=== PATIENT | female | born 1950 | race Caucasian/White ===

== ENCOUNTER 2021-04-13 21:04 | Emergency (ER) | payer MEDICARE ==
[2021-04-13 21:26] VITALS: RESP 16; TEMP 97.6
[2021-04-13] MEDS ORDERED: MORPHINE SULFATE 2 MG/ML SYRINGE IV STA (21:26)
--- NOTE | 2021-04-13 21:30 | ED ---
Fall HPI - General Chief Complaint: Fall Stated Complaint: Fall, left arm injury Time Seen by Provider: 04/13/21 21:07 Source: patient, EMS Mode of arrival: EMS - History of Present Illness Initial Comments: 's patient is 70-year-old woman brought by ambulance to be evaluated after she had a fall at home. The patient states that she was cleaning a fish tank, she tripped over an electrical cord and fell forward striking her left shoulder on the ground. She complains of pain to both anterior and posterior aspects of left shoulder. Patient denies weakness at the left hand. 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 She states that it also seems to be causing her angina flareup. She states she is having her typical angina pain. The patient states she cannot take nitroglycerin for this because it causes her blood pressure didn't go very very low. She states she "" after taking it. Complaint: fall -: minutes(s) Fall From: standing When Fall Occurred: just prior to arrival Place Fall Occurred: home Loss of Consciousness: none Prolonged Down Time?: no Symptoms Prior to Fall: none Location - Extremities: Left: Shoulder Severity: severe Context: tripped/slipped - Related Data Home Medications Medication Instructions Recorded Confirmed No Known Home Medications 04/13/21 04/13/21 Allergies Allergy/AdvReac Type Severity Reaction Status Date / Time Iodine and Iodide Containing AdvReac Confusion Verified 04/13/21 22:17 Produc Review of Systems ROS Statement: Those systems with pertinent positive or pertinent negative responses have been documented in the HPI. ROS Other: All systems not noted in ROS Statement are negative. Constitutional: Denies: fever, weakness Respiratory: Denies: cough, dyspnea Cardiovascular: Reports: as per HPI, chest pain. Denies: palpitations, orthopnea, syncope Gastrointestinal: Denies: abdominal pain, nausea, vomiting Musculoskeletal: Reports: arthralgia. Denies: back pain Skin: Denies: rash Neurological: Denies: headache, weakness, numbness Past Medical History Past Medical History: CVA/TIA, Myocardial Infarction ([place]), Thyroid Disorder History of Any Multi-Drug Resistant Organisms: None Reported Past Surgical History: Section Additional Past Surgical History / Comment(s): "surgery for cancer." Past Psychological History: Anxiety, Depression Smoking Status: Never smoker Past Alcohol Use History: None Reported Past Drug Use History: None Reported General Exam Limitations: no limitations General appearance: alert, in no apparent distress Head exam: Present: atraumatic, normocephalic Eye exam: Present: normal appearance. Absent: scleral icterus, conjunctival injection Neck exam: Present: normal inspection, full ROM. Absent: tenderness Respiratory exam: Present: normal lung sounds bilaterally. Absent: respiratory distress, wheezes, rales, rhonchi, stridor, chest wall tenderness Cardiovascular Exam: Present: regular rate, normal rhythm, normal heart sounds. Absent: systolic murmur, diastolic murmur, rubs, gallop GI/Abdominal exam: Present: soft. Absent: distended, tenderness, guarding, rebound, rigid, mass Back exam: Absent: vertebral tenderness Neurological exam: Present: alert. Absent: motor sensory deficit Skin exam: Present: warm, dry, intact, normal color. Absent: rash Course Vital Signs 04/13/21 04/13/21 04/13/21 21:18 22:13 22:59 Temperature 97.6 F Pulse Rate 84 75 83 Respiratory 16 16 16 Rate Blood Pressure 136/85 O2 Sat by Pulse 94 L 96 95 Oximetry 04/14/21 00:38 Temperature Pulse Rate 78 Respiratory 16 Rate Blood Pressure 132/62 O2 Sat by Pulse 95 Oximetry Medical Decision Making - Lab Data Result diagrams: 04/13/21 21:44 04/13/21 21:44 Lab Results 04/13/21 04/13/21 04/13/21 Range/Units 21:44 21:44 21:44 WBC 8.3 (3.8-10.6) k/uL RBC 4.72 (3.80-5.40) m/uL Hgb 14.7 (11.4-16.0) gm/dL Hct 44.0 (34.0-46.0) % MCV 93.3 (80.0-100.0) fL MCH 31.2 (25.0-35.0) pg MCHC 33.4 (31.0-37.0) g/dL RDW 13.2 (11.5-15.5) % Plt Count 263 (150-450) k/uL MPV 8.6 Neutrophils % 63 % Lymphocytes % 28 % Monocytes % 5 % Eosinophils % 3 % Basophils % 1 % Neutrophils # 5.2 (1.3-7.7) k/uL Lymphocytes # 2.3 (1.0-4.8) k/uL Monocytes # 0.4 (0-1.0) k/uL Eosinophils # 0.2 (0-0.7) k/uL Basophils # 0.1 (0-0.2) k/uL Sodium 139 (137-145) mmol/L Potassium 4.0 (3.5-5.1) mmol/L Chloride 107 (98-107) mmol/L Carbon Dioxide 25 (22-30) mmol/L Anion Gap 7 mmol/L BUN 23 H (7-17) mg/dL Creatinine 0.86 (0.52-1.04) mg/dL Est GFR (CKD-EPI)AfAm 80 (>60 ml/min/1.73 sqM) Est GFR (CKD-EPI)NonAf 69 (>60 ml/min/1.73 sqM) Glucose 145 H (74-99) mg/dL Calcium 8.8 (8.4-10.2) mg/dL Troponin I <0.012 (0.000-0.034) ng/mL - EKG Data -: EKG Interpreted by Me EKG shows normal: sinus rhythm, intervals (Normal), QRS complexes (There is a possible right ventricular conduction delay, based on RSR' pattern), ST-T waves Rate: normal (Rate 89 bpm) Disposition Clinical Impression: Fall, Humerus fracture Narrative: This is initial visit for closed fracture left proximal humerus. Disposition: HOME SELF-CARE Condition: Stable Instructions (If sedation given, give patient instructions): How to Use a Sling (ED), Fall Prevention for Older Adults (ED), Fall Prevention (ED) Is patient prescribed a controlled substance at d/c from ED?: Yes When asked, does pt state using other controlled substances?: No If prescribed controlled substance>3 days was MAPS reviewed?: Prescribed <3 Days If opioid is for acute pain is fill amount 7 days or less?: Yes If Rx opioid, was Start Talking consent form obtained?: Yes Referrals: Tiago Davies MD [Primary Care Provider] - 1-2 days
[2021-04-13 21:56] LABS: Basophils # (A) 0.1 k/uL (0-0.2); Basophils % (A) 1 %; Eosinophils # (A) 0.2 k/uL (0-0.7); Eosinophils % (A) 3 %; HGB 14.7 gm/dL (11.4-16.0); Lymphocytes # (A) 2.3 k/uL (1.0-4.8); Lymphocytes % (A) 28 %; MCH 31.2 pg (25.0-35.0); MCHC 33.4 g/dL (31.0-37.0); MCV 93.3 fL (80.0-100.0); Mean Platelet Volume 8.6; Monocytes # (A) 0.4 k/uL (0-1.0); Monocytes % (A) 5 %; Neutrophils # (A) 5.2 k/uL (1.3-7.7); Neutrophils % (A) 63 %; Platelet Count 263 k/uL (150-450); RBC 4.72 m/uL (3.80-5.40); RDW 13.2 % (11.5-15.5); WBC 8.3 k/uL (3.8-10.6)
[2021-04-13 22:06] LABS: Calcium 8.8 mg/dL (8.4-10.2)
--- NOTE | 2021-04-13 22:36 | XR ---
EXAMINATION TYPE: XR shoulder complete LT DATE OF EXAM: 04/13/2021 COMPARISON: NONE HISTORY: Shoulder pain TECHNIQUE: 2 views FINDINGS: There is fracture of the proximal shaft of the humerus. There is mild medial angulation at the fracture site. There is no dislocation at the shoulder joint. The AC joint is intact. IMPRESSION: Acute fracture of the proximal shaft of the humerus with mild angulation.
[2021-04-13] MEDS ORDERED: MORPHINE SULFATE 4 MG/ML SYRINGE IV STA (23:31)
[2021-04-14] MEDS ORDERED: HYDROcodone/APAP 5-325MG 1 EACH TAB PO STA (00:02)
[2021-04-14 00:39] VITALS: BP 132/62; PULSE 78
[2021-04-14] MEDS ORDERED: ACET/COD 300 MG/30 MG STARTER PACK 6 TAB BTL PO STA (01:27)
== END 2021-04-14 01:48 | disposition home or self-care (01) ==
LOC: EC 21:04
DX: S49.92XA Unspecified injury of left shoulder and upper arm, initial encounter (principal); Z86.73 Personal history of transient ischemic attack (TIA), and cerebral infarction without residual deficits; I25.2 Old myocardial infarction; F41.9 Anxiety disorder, unspecified; F32.9 Major depressive disorder, single episode, unspecified; W01.0XXA Fall on same level from slipping, tripping and stumbling without subsequent striking against object, initial encounter; Y93.E9 Activity, other interior property and clothing maintenance; Y92.009 Unspecified place in unspecified non-institutional (private) residence as the place of occurrence of the external cause
CPT/HCPCS: 36415; 93005; 80048; 84484; 85025; 73030; 99284; 96374; L3670; J2270

== ENCOUNTER → 2021-04-19 | Outpatient (CLI) | payer MEDICARE ==
--- NOTE | 2021-04-19 10:36 | CT ---
EXAMINATION TYPE: CT upper extremity LT wo con DATE OF EXAM: 04/19/2021 COMPARISON: Radiographs 04/13/2021 and 04/16/2021 HISTORY: 70 year-old female S42.302A, left humeral shaft fracture TECHNIQUE: Contiguous axial scanning of the left humerus without IV contrast. Coronal and sagittal re constructions performed. 3-D reconstructions generated on a dedicated independent workstation. CT DLP: 910.1 mGycm Automated exposure control for dose reduction was used. FINDINGS: Manager Cable image shows possible large hiatal hernia filling the left base. No elbow joint effusion. Elbow articulation appears intact though there is some dependent soft tissue edema along the dorsal and ulnar aspect of the forearm. Mild degenerative change AC joint. The glenohumeral joint appears intact. There is a vertical fracture oriented in the sagittal plane which extends from the medial margin of t he greater tuberosity and courses obliquely and inferiorly to exit at the medial margin of the proxim al humeral shaft. There is a 11.3 cm long butterfly fragment involving the lateral cortex extending from the lateral ma rgin of the greater tuberosity down to nearly the mid humeral shaft. This shows lateral separation of up to 1.2 cm inferiorly. The large distal humeral fracture fragment shows 9 mm of anterior displacement and minimal anterior a ngulation. Incidental normal variation with a small supracondylar spur along the anterior margin of the distal h umeral shaft. IMPRESSION: 1. COMMINUTED FRACTURE PROXIMAL TO MID HUMERUS WITH A LARGE 11.3 CM LONG BUTTERFLY FRAGMENT INVOLVING THE LATERAL CORTEX. THE PROXIMAL EXTENSION OF THE FRACTURE INVOLVES THE LATERAL MARGIN OF THE GREATE R TUBEROSITY. 2. VERTICAL FRACTURE COMPONENT INVOLVING THE MEDIAL MARGIN OF THE GREATER TUBEROSITY COURSING OBLIQUE LY DOWN TO EXIT THE MEDIAL MARGIN OF THE PROXIMAL HUMERAL SHAFT. 3. THE LARGE DISTAL HUMERAL FRACTURE FRAGMENT SHOWS 9 MM OF ANTERIOR DISPLACEMENT AND MINIMAL ANTERIO R ARTICULATION. 4. THERE APPEARS TO BE A VERY LARGE HIATAL HERNIA OCCUPYING THE LEFT BASE ON THE APPRAISER IMAGE. CONSIDE R DEDICATED CT TO BETTER CHARACTERIZE.
== END | disposition home or self-care (01) ==
LOC: RADCTMAIN 09:04
PROVIDERS: ATTEND Orthopaedic Surgery
DX: S42.252A Displaced fracture of greater tuberosity of left humerus, initial encounter for closed fracture (principal); S42.352A Displaced comminuted fracture of shaft of humerus, left arm, initial encounter for closed fracture; S42.292A Other displaced fracture of upper end of left humerus, initial encounter for closed fracture